=== PATIENT | male | born 1975 | race Two or more races ===

== ENCOUNTER 2018-05-12 07:55 | Emergency (ER) | payer SELFPAY ==
[~2018-05-12] VITALS: Ht 175.3 cm; Wt 77.3 kg
[2018-05-12 08:04] VITALS: Ht 175.3 cm; Wt 77.3 kg
[2018-05-12] MEDS ORDERED: MINOCIN100 MG PO (08:29)
[2018-05-12] MEDS ORDERED: BENADRYL25 MG PO (08:29)
[2018-05-12 09:16] VITALS: BP 136/82
== END 2018-05-12 09:17 | disposition home or self-care (01) ==
LOC: D.ER 07:55
DX: L98.9 Disorder of the skin and subcutaneous tissue, unspecified (principal); R59.0 Localized enlarged lymph nodes; F17.200 Nicotine dependence, unspecified, uncomplicated